=== PATIENT | female | born 1950 | race Caucasian/White ===

== ENCOUNTER 2021-03-17 12:18 | Emergency (ER) | payer OTHER ==
[~2021-03-17] VITALS: Ht 154.9 cm; Wt 45.4 kg
[2021-03-17 12:18] VITALS: BP_SYST 121
--- NOTE | 2021-03-17 12:25 | NUR ---
Patient to ER bed 06 to gown for evaluation. Side rails up.
--- NOTE | 2021-03-17 12:27 | NUR ---
Pt brought by BLS, A&O to voice, pt presents to ER for G-tube replacement, pt arrived with 18 [place] folley cath at stoma to keep it open , pt afebrile, VSS.
--- NOTE | 2021-03-17 12:28 | NUR ---
Dr Bower evaluating patient at bedside.
--- NOTE | 2021-03-17 12:30 | NUR ---
Dr Bower inserting G-tube , 16 size using sterile technique, procedure well tolerated.
--- NOTE | 2021-03-17 13:00 | NUR ---
PORTABLE X-RAY AT THE BEDSIDE
[2021-03-17] MEDS ORDERED: GASTROGRAFIN 120 ML ONE (13:03)
--- NOTE | 2021-03-17 14:22 | NUR ---
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
--- NOTE | 2021-03-17 15:00 | NUR ---
Patient resting quietly. No acute distress noted. Vital signs within normal range.
--- NOTE | 2021-03-17 16:00 | NUR ---
Patient resting quietly. No acute distress noted. Vital signs within normal range.
--- NOTE | 2021-03-17 17:00 | NUR ---
Patient resting quietly. No acute distress noted. Vital signs within normal range.
[2021-03-17 17:57] VITALS: BP_SYST 131
--- NOTE | 2021-03-17 18:00 | NUR ---
Patient given written and verbal discharge instructions and verbalizes understanding. ER MD discussed with patient the results and treatment provided. Patient in stable condition. ID arm band removed. NO Rx given. Patient educated on pain management and to follow up with PMD. Pain Scale 0/10. Opportunity for questions provided and answered. Medication side effect fact sheet provided.
== END 2021-03-17 17:57 | disposition home or self-care (01) ==
LOC: SED 12:18
DX: K94.23 Gastrostomy malfunction (principal)
CPT/HCPCS: 43762; 74240; 99284; Q9963